=== PATIENT | female | born 1970 | race African-American/Black ===

== ENCOUNTER 2019-05-07 15:53 | Emergency (ER) | payer MEDICAID ==
[~2019-05-07] VITALS: Ht 160 cm; Wt 77.1 kg
--- NOTE | 2019-05-07 15:55 | NUR ---
PT BIBA TO BED 08.
[2019-05-07 15:56] VITALS: BP 142/86
--- NOTE | 2019-05-07 16:01 | NUR ---
PT REMOVED HER C-COLLAR HER SELF.
[2019-05-07] MEDS ORDERED: KETOROLAC 30 MG/ML VIAL IM ONE (16:15)
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
--- NOTE | 2019-05-07 16:57 | NUR ---
Pt has been back from CT Scan. vss.
[2019-05-07 17:36] VITALS: BP 163/78
== END 2019-05-07 17:36 | disposition home or self-care (01) ==
LOC: MED 15:53
DX: S20.219A Contusion of unspecified front wall of thorax, initial encounter (principal); I10 Essential (primary) hypertension; Z98.890 Other specified postprocedural states; V49.59XA Passenger injured in collision with other motor vehicles in traffic accident, initial encounter; W22.10XA Striking against or struck by unspecified automobile airbag, initial encounter; Y93.89 Activity, other specified; Y92.488 Other paved roadways as the place of occurrence of the external cause; Y99.8 Other external cause status
CPT/HCPCS: 71045; 71120; 99283; J1885

== ENCOUNTER 2019-09-08 22:29 | Emergency (ER) | payer MEDICAID ==
[~2019-09-08] VITALS: Ht 157.5 cm; Wt 79.9 kg
[2019-09-08 22:35] VITALS: BP 187/100
--- NOTE | 2019-09-08 22:35 | NUR ---
to bed # 11 ambulatory
--- NOTE | 2019-09-08 22:50 | NUR ---
48 Y/O FEMALE C/O COUGH, RUNNY NOSE, BODY ACHES X 2 WEEKS. PT RATES PAIN 10/10 AND DESCRIBES IT ACHING. LUNG SOUNDS CLEAR ALL THORUGHOUT. NO RESP DISTRESS NOTED. NO SOB. NO USE OF ACCESSORY MUSCLE. PRODUCTIVE COUGH AND RUNNY NOSE PRESENT. VSS. PT STATES SHE DIDNT GET THE FLU VACCINE THIS YEAR. A & O X 4. STEADY GAIT. NKA. PMH: HTN, ASTHMA, "HOLE IN HER HEART"
--- NOTE | 2019-09-08 22:54 | NUR ---
XR AT BEDSIDE.
--- NOTE | 2019-09-08 22:55 | NUR ---
FLU COLLECTED AND SENT TO LAB.
[2019-09-08] MEDS ORDERED: ACETAMIN/CODEINE 120/12MG-5ML 5 ML UDC PO ONE (23:20)
[2019-09-09 00:33] VITALS: BP 133/64
--- NOTE | 2019-09-09 00:33 | NUR ---
Patient discharged with v/s stable. She states relief of pain. Cough present but tollerable. Written and verbal after care instructions given and explained. Patient alert, oriented and verbalized understanding of instructions. Ambulatory with steady gait. All questions addressed prior to discharge. ID band removed. Patient advised to follow up with PMD and when to return to ER. Rx of Guaiatussin, Azithromycin, and Albuterol given. Patient educated on indication of medication including possible reaction and side effects. Opportunity to ask questions provided and answered.
== END 2019-09-09 00:33 | disposition home or self-care (01) ==
LOC: MED 22:29
DX: J20.9 Acute bronchitis, unspecified (principal); I10 Essential (primary) hypertension; F17.200 Nicotine dependence, unspecified, uncomplicated; F12.90 Cannabis use, unspecified, uncomplicated; Z98.890 Other specified postprocedural states; Z71.6 Tobacco abuse counseling
CPT/HCPCS: 71045; 87804; 99284; Q0092

== ENCOUNTER 2021-02-28 19:52 | Emergency (ER) | payer MEDICAID, OTHER ==
[~2021-02-28] VITALS: Ht 160 cm; Wt 98.4 kg
[2021-02-28 19:56] VITALS: BP 149/93
--- NOTE | 2021-02-28 19:56 | NUR ---
TO BED AMBULATORY
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
[2021-02-28] MEDS ORDERED: methylPREDNISolone SS 125 MG/2 ML VIAL IM ONE (20:30)
[2021-02-28] MEDS ORDERED: ALBUTEROL SULFATE/IPRATROPIU 3 ML SOL IH ONE (20:30)
[2021-02-28] MEDS ORDERED: PRED20TA5 PO (21:04)
[2021-02-28] MEDS ORDERED: ALBU0.0912 IH (21:04)
--- NOTE | 2021-02-28 21:21 | NUR ---
Respiratory Therapist at bedside for respiratory intervention.
[2021-02-28 22:21] VITALS: BP 147/92
--- NOTE | 2021-02-28 22:21 | NUR ---
Patient discharged with v/s stable. Written and verbal after care instructions given and explained. Patient alert, oriented and verbalized understanding of instructions. Ambulatory with steady gait. All questions addressed prior to discharge. ID band removed. Patient advised to follow up with PMD. Rx of PREDNISONE, ALBUTEROL SULFATE, ZOFRAN, Guaifenesin given. Patient educated on indication of medication including possible reaction and side effects. Opportunity to ask questions provided and answered.
[2021-02-28] MEDS ORDERED: DEXT5SYR3 PO (22:22)
[2021-02-28] MEDS ORDERED: ONDA-24 SL (22:22)
== END 2021-02-28 22:21 | disposition home or self-care (01) ==
LOC: MED 19:52
DX: J45.901 Unspecified asthma with (acute) exacerbation (principal); I10 Essential (primary) hypertension; F12.90 Cannabis use, unspecified, uncomplicated; Z79.899 Other long term (current) drug therapy
CPT/HCPCS: 94640; 96372; 99283; J2930

== ENCOUNTER 2021-07-14 02:57 | Emergency (ER) | payer MEDICAID, OTHER ==
[~2021-07-14] VITALS: Ht 160 cm; Wt 106.6 kg
[~2021-07-14 02:57] MED LIST: ALBU0.0912 IH; DEXT5SYR3 PO; ONDA-24 SL; PRED20TA5 PO
[2021-07-14 03:01] VITALS: BP 155/113
--- NOTE | 2021-07-14 03:08 | NUR ---
PT AMBULATED TO CHAIR C W/ STEADY GAIT.
--- NOTE | 2021-07-14 03:48 | NUR ---
PT MOVED TO BED 11.
[2021-07-14] MEDS ORDERED: FUROSEMIDE 40 MG TAB PO ONE (06:20)
[2021-07-14 07:06] LABS: BASOPHILS # (AUTO) 0.1 K/uL (0.00-0.22); BASOPHILS % (AUTO) 0.9 % (0.0-2.0); EOSINOPHILS # (AUTO) 0.1 K/uL (0-0.4); HEMATOCRIT 32.4 % (36-48); HEMOGLOBIN 10.3 g/dL (12.0-16.0); LYMPHOCYTES # (AUTO) 1.3 K/uL (2.5-16.5); MEAN CORPUSCULAR HEMOGLOBIN 25 pg (27-31); MEAN CORPUSCULAR HGB CONC 32 g/dL (33-37); MEAN CORPUSCULAR VOLUME 78.8 fL (80-94); MONOCYTES # (AUTO) 0.6 K/uL (0.8-1.0); MONOCYTES % (AUTO) 9.6 % (1.7-9.3); NEUTROPHILS # (AUTO) 4.2 K/uL (1.8-7.7); NEUTROPHILS % (AUTO) 66.5 % (42.2-75.2); PLATELET COUNT (AUTO) 268 K/uL (140-450); RED BLOOD CELL COUNT(AUTO) 4.11 MIL/uL (4.20-5.40); RED CELL DISTRIBUTION WIDTH 16.1 % (11.6-13.7); WHITE BLOOD COUNT (AUTO) 6.3 K/uL (4.8-10.8)
[2021-07-14 07:21] LABS: ANION GAP 10.1 (8-16); CARBON DIOXIDE 26.9 mmol/L (21-32); CREATININE 0.9 mg/dL (0.6-1.3)
--- NOTE | 2021-07-14 07:36 | NUR ---
RECEIVED REPORT FROM SHEELA RN, TRANSFER OF CARE AT THIS TIME
--- NOTE | 2021-07-14 07:40 | NUR ---
PT RESTING IN BED WITH EVEN AND UNLABORED RESPIRATIONS. A/O X4, GCS 15. WILL CONTINUE TO MONITOR
--- NOTE | 2021-07-14 07:41 | NUR ---
50 Y/O FEMALE BIB SON C/O SOB THAT STARTED THIS MORNING. PT REPORTS USING HER ALBUTEROL INHALER WITH NO RELIEF. PT DENIES PAIN. DENIES CHEST PAIN/N/V. CAP REFILL <3 SECONDS. PT REPORTS THAT SHE FEELS BETTER AFTER THE MEDICATION THAT WAS GIVEN. NO SIGNS OF DISTRESS, 99% RA. PT A/O X4 WITH EVEN AND UNLABORED RESPIRATIONS. PMH: ASTHMA, HTN NKA
[2021-07-14] MEDS ORDERED: FURO-570 PO (07:47)
[2021-07-14] MEDS ORDERED: PROM118S5 PO (07:47)
[2021-07-14 08:11] VITALS: BP 145/80
--- NOTE | 2021-07-14 08:11 | NUR ---
Patient discharged with v/s stable. Written and verbal after care instructions given and explained ABOUT EDEMA AND PULMONARY EDEMA. Patient alert, oriented and verbalized understanding of instructions. Ambulatory with steady gait. All questions addressed prior to discharge. ID band removed. Patient advised to follow up with PMD. Rx of FUROSEMIDE AND PROMETHAZINE-DM SYRUP given. Patient educated on indication of medication including possible reaction and side effects. Opportunity to ask questions provided and answered.
== END 2021-07-14 08:11 | disposition home or self-care (01) ==
LOC: MED 02:57
DX: J81.1 Chronic pulmonary edema (principal); R60.9 Edema, unspecified; G47.9 Sleep disorder, unspecified; J45.909 Unspecified asthma, uncomplicated; I10 Essential (primary) hypertension; Z79.899 Other long term (current) drug therapy
CPT/HCPCS: 36415; 71045; 80048; 83880; 84484; 85025; 93005; 99285; Q0092

== ENCOUNTER 2022-03-03 09:06 | Emergency (ER) | payer MEDICAID ==
[~2022-03-03] VITALS: Ht 160 cm; Wt 107.0 kg
[~2022-03-03 09:06] MED LIST changes: +FURO-570 PO; +ONDA-188 SL; -ONDA-24 SL; +PROM118S5 PO
[2022-03-03 09:08] VITALS: BP 167/100
--- NOTE | 2022-03-03 09:09 | NUR ---
PT AMBULATED TO BED 09.
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
--- NOTE | 2022-03-03 09:20 | NUR ---
PT PLACED ON MONITOR, CHANGED IN A GOWN, BED LOCKED
--- NOTE | 2022-03-03 09:37 | NUR ---
DR ALCALA AT BEDSIDE
--- NOTE | 2022-03-03 09:39 | NUR ---
HR NOW AT 89, DR ALCALA MADE AWARE OF PT BP, STATED THAT ITS OK, PT DIDNT TAKE MEDS
[2022-03-03] MEDS ORDERED: AZIT250T4 PO (10:25)
[2022-03-03] MEDS ORDERED: ROBAC PO (10:25)
--- NOTE | 2022-03-03 11:09 | NUR ---
DR ALCALA MADE AWARE OF PT BP BEFOREDISCHARGE, SAID PT IS OK, THEY CAN GO HOME
[2022-03-03 11:11] VITALS: BP 167/100
--- NOTE | 2022-03-03 11:13 | NUR ---
Patient discharged with v/s stable. Written and verbal after care instructions given and explained. Patient alert, oriented and verbalized understanding of instructions. Ambulatory with steady gait. All questions addressed prior to discharge. ID band removed. Patient advised to follow up with PMD. Rx of AZITHROMYCIN, GUAIFENESIN-CODEINE SYRUP given. Patient educated on indication of medication including possible reaction and side effects. Opportunity to ask questions provided and answered.
== END 2022-03-03 11:13 | disposition home or self-care (01) ==
LOC: MED 09:06
DX: J20.9 Acute bronchitis, unspecified (principal); J45.909 Unspecified asthma, uncomplicated; I10 Essential (primary) hypertension; Z98.890 Other specified postprocedural states; Z79.899 Other long term (current) drug therapy; Z79.2 Long term (current) use of antibiotics
CPT/HCPCS: 71045; 99283; Q0092

== ENCOUNTER 2022-08-08 17:30 | Emergency (ER) | payer MEDICAID ==
[~2022-08-08] VITALS: Ht 160 cm; Wt 92.1 kg
[~2022-08-08 17:30] MED LIST changes: +AZIT250T4 PO; +ROBAC PO
[2022-08-08 18:11] VITALS: BP 132/85
--- NOTE | 2022-08-08 19:14 | NUR ---
MICHELLE WRAP X 1 TO R KNEE
--- NOTE | 2022-08-08 20:34 | NUR ---
PT REFUSED CRUTCHES
--- NOTE | 2022-08-08 20:37 | NUR ---
MIGUEL BAXTER SPOKE TO PT.
[2022-08-08] MEDS ORDERED: ACET-10509 PO (20:50)
--- NOTE | 2022-08-08 21:24 | NUR ---
PT PROVIDED CRUTCHES. STATED SHE DID NOT WANT A DEMONSTRATION.
[2022-08-08 21:33] VITALS: BP 132/85
--- NOTE | 2022-08-08 21:33 | NUR ---
Patient discharged with v/s stable. Written and verbal after care instructions given and explained. Patient verbalized understanding. Ambulatory with steady gait. All questions addressed prior to discharge. Advised to follow up with PMD.
== END 2022-08-08 21:33 | disposition home or self-care (01) ==
LOC: MED 17:30
DX: M25.561 Pain in right knee (principal); I10 Essential (primary) hypertension; J45.909 Unspecified asthma, uncomplicated; I25.10 Atherosclerotic heart disease of native coronary artery without angina pectoris; Z79.899 Other long term (current) drug therapy
CPT/HCPCS: 73562; 99283